=== PATIENT | female | born 2000 | race African-American/Black ===

== ENCOUNTER 2021-11-23 19:33 | Inpatient (IN) ==
[2021-11-24 02:41] LABS: ABS Basophils 0.1 10^3/ul (0-0.2); ABS Eosinophils 0.2 10^3/ul (0-0.6); ABS Lymphocytes 1.6 10^3/ul (1.0-4.8); ABS Monocytes 0.7 10^3/ul (0-0.8); ABS Neutrophils 13.3 10^3/ul (1.5-7.7); ABS Nucleated RBC 0.1 10^3/ul; Eosinophil % 1.1 %; Hematocrit 30 % (35-47); Hemoglobin 9.4 g/dL (12.0-16.0); Lymphocyte % 10.3 %; Mean Corpuscular HGB Conc 31 g/dL (31-36); Mean Corpuscular Hemoglobin 22 pg (27-31); Mean Corpuscular Volume 72 fL (80-97); Nucleated Red Blood Cells % 0.3; Platelet Count 439 10^3/uL (150-450); Red Cell Distribution Width 15 % (10-15)
[2021-11-24] MEDS ORDERED: Furosemide 40 mg/4 ml IV VIAL IV ONE (03:16)
[2021-11-24 03:19] LABS: Albumin 3.2 g/dL (3.2-5.2); Albumin/Globulin Ratio 1.1 (1-3); Calcium 8.8 mg/dL (8.6-10.3); Globulin 2.9 g/dL (2-4); Potassium 4.4 mmol/L (3.5-5.0); Total Bilirubin 0.4 mg/dL (0.2-1.0); Total Protein 6.1 g/dL (6.4-8.9); eGFR CKD-EPI 134.7 (>60)
[2021-11-24] MEDS ORDERED: nitroGLYCERIN DRIP 25,000 MCG/250 ML BTL IV SCH (04:00)
[2021-11-24 04:50] LABS: Urine Appearance Cloudy; Urine Bilirubin Negative (Negative); Urine Blood 3+ (Negative); Urine Color Yellow; Urine Glucose Negative (Negative); Urine Ketones 1+ (Negative); Urine Nitrite Negative (Negative); Urine Protein 1+(30 mg/dL) (Negative); Urine Specific Gravity 1.009 (1.002-1.030); Urine Urobilinogen Negative (Negative)
[2021-11-24 05:14] LABS: Urine Bacteria 1+ (Absent); Urine Red Blood Cell 3+(>10/hpf) (Absent); Urine Squamous Epithelial Cell Present (Absent); Urine White Blood Cell 3+(>20/hpf) (Absent)
[2021-11-24 06:14] LABS: HDL Cholesterol 51.2 mg/dL
[2021-11-24] MEDS ORDERED: Iodixanol (CONTRAST) 320 MG/ML 100 ML SDV IV ONE (06:56)
[2021-11-24] MEDS: Enoxaparin 40 MG/0.4 ML SYR SUBCUT SCH (07:58)
[2021-11-24 10:57] LABS: Magnesium 1.6 mg/dL (1.9-2.7)
[2021-11-24] MEDS ORDERED: Magnesium Sulf 4 GM/100 ML IV 4,000 MG/100 ML BAG IVPB ONE ×2 (11:48→12:01)
[2021-11-24] MEDS ORDERED: Labetalol IV 5 MG/ML 20 ml VIAL IV PUSH PRN (12:22)
[2021-11-24 13:44] LABS: TSH Ultra Thyroid Stim Horm 2.55 mcIU/mL (0.34-5.60)
[2021-11-25 04:29] LABS: ABS Basophils 0.1 10^3/ul (0-0.2); ABS Eosinophils 0.3 10^3/ul (0-0.6); ABS Lymphocytes 1.4 10^3/ul (1.0-4.8); ABS Monocytes 0.6 10^3/ul (0-0.8); ABS Neutrophils 10.6 10^3/ul (1.5-7.7); Hematocrit 29 % (35-47); Hemoglobin 9.3 g/dL (12.0-16.0); Mean Corpuscular HGB Conc 32 g/dL (31-36); Mean Corpuscular Hemoglobin 23 pg (27-31); Mean Corpuscular Volume 72 fL (80-97); Mean Platelet Volume 6.5 fL (7.4-10.4); Nucleated Red Blood Cells % 0.2; Platelet Count 430 10^3/uL (150-450); Red Blood Count 4.05 10^6 /uL (3.70-4.87); Red Cell Distribution Width 15 % (10-15); White Blood Count 12.9 10^3/uL (3.5-10.8)
[2021-11-25 05:01] LABS: Calcium 8.6 mg/dL (8.6-10.3); Magnesium 2.1 mg/dL (1.9-2.7); Potassium 4.3 mmol/L (3.5-5.0); eGFR CKD-EPI 133.1 (>60)
[2021-11-25 06:42] LABS: Direct Bilirubin 0.1 mg/dL (0.03-0.18); Indirect Bilirubin 0.3 mg/dL (0.3-1.0); Total Bilirubin 0.4 mg/dL (0.2-1.0)
[2021-11-25] MEDS: Enoxaparin 40 MG/0.4 ML SYR SUBCUT SCH (09:21)
[2021-11-25 11:48] LABS: Urine TP Concentration 53 mg/dL
[2021-11-26 07:23] VITALS: BP 137/88
[2021-11-26] MEDS: Enoxaparin 40 MG/0.4 ML SYR SUBCUT SCH (09:43)
== END 2021-11-26 12:10 | disposition home or self-care (01) | DRG 561 ==
LOC: ED 19:33 → EDHOLD 11-24 05:51 → ICU 11-24 07:36 → MCHOB 11-25 11:58
PROVIDERS: ADMIT Internal Medicine; ATTEND Obstetrics & Gynecology